=== PATIENT | male | born 1980 | race Two or more races ===

== ENCOUNTER 2017-05-22 14:46 | Emergency (ER) | payer SELFPAY ==
[~2017-05-22] VITALS: Ht 167.6 cm; Wt 67.6 kg
[2017-05-22] MEDS ORDERED: LIDOCAINE 2% 20 ML MDV ONE (15:26)
[2017-05-22] MEDS ORDERED: CYCLOBENZAPRINE 10 MG TABLET PO ONE (15:30)
[2017-05-22] MEDS ORDERED: IBUPROFEN 600 MG TABLET PO ONE ×2 (15:30→15:35)
--- NOTE | 2017-05-22 15:30 | NUR ---
PT MEDICATED ORDERED.
[2017-05-22] MEDS ORDERED: CYCLOBENZAPRINE 10 MG TABLET ONE (15:35)
--- NOTE | 2017-05-22 15:38 | NUR ---
MARKETING STRATEGIST AT FOR BLOOD DRAW.
[2017-05-22 15:45] LABS: BASOPHILS # (AUTO) 0.2 /CMM (0.0-0.2); BASOPHILS % (AUTO) 2.7 % (0.0-2.0); EOSINOPHILS # (AUTO) 0.3 /CMM (0.0-0.7); EOSINOPHILS % (AUTO) 2.9 % (0.0-6.0); HEMATOCRIT 38 % (39-51); HEMOGLOBIN 12.8 g/dL (13.5-17.5); LYMPHOCYTES # (AUTO) 2.6 /CMM (0.8-4.8); MEAN CORPUSCULAR HEMOGLOBIN 32 PG (26.0-33.0); MEAN CORPUSCULAR HGB CONC 34 g/dl (31.0-36.0); MEAN CORPUSCULAR VOLUME 93 fL (80-96); MONOCYTES # (AUTO) 0.6 /CMM (0.1-1.30); MONOCYTES % (AUTO) 6.7 % (2.0-12.0); NEUTROPHILS # (AUTO) 5.2 /CMM (1.8-8.9); NEUTROPHILS % (AUTO) 58.7 % (43.0-81.0); PLATELET COUNT (AUTO) 209 /CMM (150-450); RDW COEFFICIENT OF VARIATION 12.7 (11.5-15.0); RED BLOOD CELL COUNT(AUTO) 4.03 MIL/uL (4.5-6.0); WHITE BLOOD COUNT (AUTO) 8.9 K/uL (4.3-11.0)
--- NOTE | 2017-05-22 15:50 | NUR ---
PT IS UNABLE TO PROVIDE URINE SAMPLE AT THIS TIME.
[2017-05-22 15:54] LABS: CALCIUM, SERUM 8.2 mg/dL (8.5-10.1); CREATININE 0.9 mg/dL (0.6-1.3)
[2017-05-22 16:00] LABS: ALBUMIN 3.2 g/dL (3.4-5.0); BILIRUBIN,DIRECT 0.2 mg/dL (0.0-0.2); BILIRUBIN,TOTAL 0.8 mg/dL (0.2-1.0); TOTAL PROTEIN, SERUM 6.8 g/dL (6.4-8.2)
--- NOTE | 2017-05-22 16:31 | NUR ---
Patient discharged to home in stable condition. Written and verbal after care instructions given. Patient verbalizes understanding of instruction.
[2017-05-22 16:32] VITALS: BP 108/78
== END 2017-05-22 16:32 | disposition home or self-care (01) ==
LOC: ER 14:47
DX: S39.012A Strain of muscle, fascia and tendon of lower back, initial encounter (principal); F17.200 Nicotine dependence, unspecified, uncomplicated; B19.20 Unspecified viral hepatitis C without hepatic coma; X58.XXXA Exposure to other specified factors, initial encounter; Y93.89 Activity, other specified; Y92.89 Other specified places as the place of occurrence of the external cause; Y99.9 Unspecified external cause status
CPT/HCPCS: 36415; 80048; 80076; 83690; 85025; 99284; A4606; Z7610; A6402; J3490

== ENCOUNTER 2019-06-21 17:08 | Emergency (ER) | payer BC, MEDICAID, OTHER ==
[~2019-06-21] VITALS: Ht 172.7 cm; Wt 99.8 kg
--- NOTE | 2019-06-21 17:50 | NUR ---
RLE PAIN, SWELLING, FEVER X 3 DAYS. PATIENT A/OX4, BREATHING EVEN AND UNLABORED, NO SOB NOTED. NEEDS ATTENDED. KEPT COMFORTABLE.
--- NOTE | 2019-06-21 19:02 | NUR ---
US TECH AT BEDSIDE.
--- NOTE | 2019-06-21 19:18 | NUR ---
endorsed by off going juwan perez. pt stable condition. vss. nad. will continue to monitor.
[2019-06-21 19:20] VITALS: BP 140/70
[2019-06-21] MEDS ORDERED: CEPHALEXIN MONOHYDRATE 500 MG CAPSULE PO ONE ×2 (19:41→20:00)
[2019-06-21] MEDS ORDERED: SULFAMETH/TRIMETH 800/160 MG 1 UDTAB TABLET ONE (19:41)
[2019-06-21] MEDS ORDERED: SULFAMETH/TRIMETH 800/160 MG 1 UDTAB TABLET PO ONE (20:00)
== END 2019-06-21 19:46 | disposition home or self-care (01) ==
LOC: ER 17:08
DX: L03.115 Cellulitis of right lower limb (principal); I10 Essential (primary) hypertension; F17.200 Nicotine dependence, unspecified, uncomplicated; Z86.19 Personal history of other infectious and parasitic diseases
CPT/HCPCS: 93971-TC

== ENCOUNTER 2019-12-09 17:36 | Emergency (ER) | payer MEDICAID, OTHER ==
[~2019-12-09] VITALS: Ht 172.7 cm; Wt 99.8 kg
[2019-12-09 17:54] VITALS: BP 150/89
== END 2019-12-09 18:48 | disposition home or self-care (01) ==
LOC: ER 17:36
DX: L03.115 Cellulitis of right lower limb (principal); J06.9 Acute upper respiratory infection, unspecified; Z86.19 Personal history of other infectious and parasitic diseases

== ENCOUNTER 2019-12-29 18:38 | Emergency (ER) | payer MEDICAID ==
[~2019-12-29] VITALS: Ht 172.7 cm; Wt 99.8 kg
[2019-12-29 18:42] VITALS: BP 129/88
--- NOTE | 2019-12-29 19:05 | NUR ---
PT CAME INTO THE ED C/O L UPPER ARM ABSCESS X 2 DAYS AFTER INJECTING METH. SWELLING AND REDNEESS NOTED. PT AAX4, VSS, RR EVEN AND UNLABORED ON RA W NAD NOTED. PT CONNECTED TO THE MONITOR AND POX. AWAITING FOR MD GRISSOM
--- NOTE | 2019-12-29 19:50 | NUR ---
FOLLOWED UP W DR CERVANTES REGARDING PT'S CHIEF COMPLAINT.
--- NOTE | 2019-12-29 20:42 | NUR ---
PT LEFT WITHOUT BEING SEEN BY MD.
== END 2019-12-29 20:44 | disposition left against medical advice (07) ==
LOC: ER 18:39
DX: Z53.21 Procedure and treatment not carried out due to patient leaving prior to being seen by health care provider (principal)

== ENCOUNTER 2019-12-31 23:14 | Emergency (ER) | payer MEDICAID ==
[~2019-12-31] VITALS: Ht 172.7 cm; Wt 99.8 kg
[2019-12-31 23:39] VITALS: BP 139/85
[2019-12-31] MEDS ORDERED: LIDOCAINE 1%-EPI 1:100,000 20 ML VIAL ONE (23:45)
--- NOTE | 2019-12-31 23:47 | NUR ---
PT CAME TO THE ED C/O LUE ABSCESS X 1 WEEK. SWELLING AND PAIN NOTED. PT AAOX4, RR EVEN AND UNLABORED ON RA W NAD NOTED. PT CONNECTED TO THE MONITOR AND POX
[2020-01-01] MEDS: HYDROCODONE/APAP 10/325MG 1 EA TABLET PO ONE (00:15)
[2020-01-01] MEDS ORDERED: HYDROCODONE/APAP 10/325MG 1 EA TABLET ONE (00:19)
== END 2020-01-01 00:22 | disposition home or self-care (01) ==
LOC: ER 23:14
DX: L02.414 Cutaneous abscess of left upper limb (principal)
CPT/HCPCS: 99283; A6403; A6407; J3490